=== PATIENT | male | born 1965 | race Caucasian/White ===

== ENCOUNTER 2022-09-14 03:05 | Emergency (ER) | payer MEDICARE ==
[~2022-09-14] VITALS: Ht 167.6 cm; Wt 77.1 kg
[2022-09-14 03:07] VITALS: BP 170/100
--- NOTE | 2022-09-14 03:08 | NUR ---
RECEIVED IN BED 4, BIBA, PD AT BEDSIDE
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
--- NOTE | 2022-09-14 03:55 | NUR ---
RETURNED FROM CT
--- NOTE | 2022-09-14 06:00 | NUR ---
Patient appears to be resting comfortably in bed. Vital Signs within normal limits. Respirations even and unlabored.
--- NOTE | 2022-09-14 07:15 | NUR ---
REPORT RECIEVED FROM DOMO ASENCIO FOR TRANSFER OF CARE.
[2022-09-14 08:06] VITALS: BP 188/109
--- NOTE | 2022-09-14 08:06 | NUR ---
BP is high Dr. Barahona made aware.
--- NOTE | 2022-09-14 08:40 | NUR ---
Patient discharged with v/s stable. Written and verbal after care instructions given. Patient verbalized understanding. Ambulatory with steady gait. All questions addressed prior to discharge. Advised to follow up with PMD.
--- NOTE | 2022-09-14 08:41 | NUR ---
The patient's care was reviewed and supervised by Miya Reyes RN.
== END 2022-09-14 08:40 | disposition home or self-care (01) ==
LOC: MED 03:05
DX: F10.129 Alcohol abuse with intoxication, unspecified (principal); M54.2 Cervicalgia; Y90.9 Presence of alcohol in blood, level not specified
CPT/HCPCS: 70450; 71045; 72125; 99284; Q0092